=== PATIENT | male | born 1960 | race Hispanic/Latino ===

== ENCOUNTER 2024-05-01 06:45 | Day surgery (SDC) | payer MEDICARE ==
[~2024-05-01] VITALS: Ht 160 cm; Wt 105.0 kg
[2024-05-01] VITALS (7 sets, daily range): BP systolic 96–144; BP diastolic 53–76
[~2024-05-01 06:45] MED LIST: FISH OIL 1,0001 EAC8 PO; FLOMAX0.4 MG PO; LACTATED RINGER'S 1,000 ML IV SCH; MULTI VITAMIN1 EACH PO; Ropivacaine HCl 20 MG/10 ML AMP ONE; TRAMADOL HCL100 M2 PO; TRANEXAMIC ACID 2,000 MG in SODIUM CHLORIDE 0.9% 100 ML IV ONE; VITAMIN B12500 MCG PO
[2024-05-01] MEDS ORDERED: PANTOPRAZOLE SODIUM 40 MG TABEC PO SCH (07:00)
[2024-05-01] MEDS ORDERED: ROPIVACAINE IN 0.9% SOD CHL/PF 545 ML ELS.PMP.HR IRRIGATION SCH (07:00)
[2024-05-01] MEDS ORDERED: CEFAZOLIN SODIUM 2 GM/20 ML SYR IV SCH ×2 (07:00→15:00)
[2024-05-01] MEDS ORDERED: INTRA-ARTICULAR ANALGESIC INJECTION XX SCH (07:00)
[2024-05-01] MEDS ORDERED: IBLOOD GLUCOSE TEST STRIP 1 EA TEST VI PRN ×2 (07:00→11:30)
[2024-05-01] MEDS ORDERED: ondansetron HCL 4 MG TAB PO SCH (07:00)
[2024-05-01] MEDS ORDERED: OXYCODONE HCL 5 MG TAB PO SCH (07:00)
[2024-05-01] MEDS ORDERED: GABAPENTIN 600 MG TAB PO SCH (07:00)
[2024-05-01] MEDS ORDERED: TRANEXAMIC ACID 2,000 MG in SODIUM CHLORIDE 0.9% 100 ML IV SCH (07:00)
[2024-05-01] MEDS ORDERED: LIDOCAINE HCL 1% 5 ML SDV INJ ONE (07:00)
[2024-05-01] MEDS ORDERED: DEXAMETHASONE SOD PHOS 4 MG/ML VIAL ONE ×2 (07:38→11:40)
[2024-05-01] MEDS ORDERED: dexmedeTOMIDine HCl 200 MCG/2 ML VIAL ONE (07:38)
[2024-05-01] MEDS ORDERED: LIDOCAINE HCL 2% 5 ML SDV ONE (07:38)
[2024-05-01] MEDS ORDERED: propofoL 200 MG/20 ML VIAL ONE ×3 (07:38→10:42)
[2024-05-01] MEDS ORDERED: Ropivacaine HCl 0.5% 30 ML VIAL ONE ×2 (07:39→11:40)
[2024-05-01] MEDS ORDERED: SODIUM CHLORIDE 0.9% 40 ML IV ONE (07:39)
[2024-05-01] MEDS ORDERED: TRANEXAMIC ACID 1,000 MG/10 ML AMP ONE ×2 (07:45→10:34)
[2024-05-01] MEDS ORDERED: LACTATED RINGER'S 0 ML IV ONE (07:59)
[2024-05-01] MEDS ORDERED: OXYCODONE HCL 5 MG TAB PO PRN (09:00)
[2024-05-01] MEDS ORDERED: KETOROLAC TROMETHAMINE 30 MG/ML VIAL IV PRN (09:00)
[2024-05-01] MEDS ORDERED: LACTATED RINGER'S 1,000 ML IV ONE (10:38)
[2024-05-01] MEDS ORDERED: KETOROLAC TROMETHAMINE 30 MG/ML VIAL ONE (10:54)
[2024-05-01] MEDS ORDERED: GABAPENTIN300 MG PO (11:01)
[2024-05-01] MEDS ORDERED: SENNA LAX8.6 MG PO (11:01)
[2024-05-01] MEDS ORDERED: DICLOFENAC SODI75 MG PO (11:01)
[2024-05-01] MEDS ORDERED: OXYCODONE HCL5 MG PO (11:01)
[2024-05-01] MEDS ORDERED: NALOXONE HCL 0.4 MG SYR IV PRN (11:30)
[2024-05-01] MEDS ORDERED: fentaNYL citrate 50 MCG/ML SDV IV PRN (11:30)
[2024-05-01] MEDS ORDERED: ondansetron HCL 4 MG/2 ML VIAL IV PRN (11:30)
[2024-05-01] MEDS ORDERED: SODIUM CHLORIDE 0.9% 20 ML IV ONE (11:40)
[2024-05-01] MEDS ORDERED: ACETAMINOPHEN 1,000 MG/100 ML VIAL ONE (11:41)
[2024-05-01] MEDS ORDERED: ACETAMINOPHEN 1,000 MG/100 ML VIAL IV ONE (12:00)
[2024-05-01] MEDS ORDERED: TRANEXAMIC ACID IN NACL,ISO-OS 1,000 MG/100 ML PIGGYBACK IV ONE (12:00)
--- NOTE | 2024-05-01 12:15 | NUR ---
PT ARRIVED BACK TO FROM PACU AT APPROX 1215. REPORT RECEIVED FROM DIESEL DRAGLINE OPERATOR. IV SITE ASSESSED. VS TAKEN. SURGICAL SITE VISUALIZED WITH DIESEL DRAGLINE OPERATOR. NO SHADOWING NOTED. CRYO CUFF PLACED. ON-Q-PUMP SET AT 4. PT REPORTS PAIN 03/01. SPINAL RESOLVED. PT DENIES N/V. WATER, APPLESAUCE, JELLO, AND OMAR CRACKER PROVIDED. BILAT RAILS IN PLACE AND BED IN LOW POSITION WITH WHEELS LOCKED FOR FALL PREVENTION. CALL LIGHT WITHIN PT REACH. PTS SON AND SIFE REMAIN AT BEDSIDE. IV FLUIDS REPLACED WITH NEW BAG OF LR.
--- NOTE | 2024-05-01 12:50 | NUR ---
PT CALLED TO VOID. PT PROVIDED WITH URINAL AND WAS ABLE TO VOID 350ML OF CLR, YELLOW URINE. LUNCH ORDER PLACED FOR PT.
--- NOTE | 2024-05-01 13:10 | NUR ---
PT ARRIVED BACK TO FROM PACU AT APPROX 1215. REPORT RECEIVED FROM POLYMERIZATION SUPERVISOR. IV SITE ASSESSED. VS TAKEN. SURGICAL DRSG VISULAIZED WITH POLYMERIZATION SUPERVISOR. NO SHADOWING PRESENT. CRYO CUFF PLACED. ON-Q PUMP SET AT 4. PT REPORTS PAIN 4/10. WATER, APPLESAUCE, JELLO, AND OMAR CRACKERS GIVEN AT PT REQUEST. PT DENIES NAUSEA WHEN ASKED. SPINAL RESOLVED. BILAT BED RAILS IN PLACE. BED IN LOW POSITION, CALL LIGHT WITHIN REACH. PT SON AND REMAIN AT BEDSIDE. LR BAG REPLACED WITH NEW BAG.
--- NOTE | 2024-05-01 13:15 | NUR ---
INTO PTS ROOM FOR ROUTINE REASSESSMENT. PT REPORTS PAIN 2/10 AND CONT TO DENY N/V WHEN ASKED. PT ATE ALL OF HIS LUNCH AND HIS SON BROUGHT HIM A CUP OF COFFEE FROM [employer] IN THE BOX. HAS REMAINED WITH PT AT BEDSIDE. NO ACUTE CHANGES IN DRSG FROM PREVIOUS ASSESSMENT. IV SITE ASSESSED, PATENT. CALL LIGHT WITHIN PT REACH. ON-Q PUMP REMAINS AT 4. CRYO CUFF IN PLACE. BILAT RAILS IN PLACE FOR SAFETY.
[2024-05-01] MEDS ORDERED: TRANEXAMIC ACID 2,000 MG in SODIUM CHLORIDE 0.9% 100 ML IV ONE (13:30)
--- NOTE | 2024-05-01 13:35 | NUR ---
PT OFF DS FLOOR WITH PT AND HIS SON FOR INTERPRETATION AT PT REQUEST.
--- NOTE | 2024-05-01 14:15 | NUR ---
INTO PTS ROOM FOR ROUTINE ASSESSMENT. PT CONT TO DENY NAUSEA AND REPORTS PAIN /10. CRYO CUFF IN PLACE. ON-Q PUMP REMAINS SET AT 4. NO ACUTE CHANGES IN DRSGS FROM PREVIOUS ASSESSMENT. FAMILY REMAINS IN ROOM. TXA INFUSION COMPLETED. PT INTO SEE PT. CALL LIGHT WITHIN PT REACH.
--- NOTE | 2024-05-01 14:25 | OR ---
[facility] [address] [place] [address] Signed DATE OF OPERATION: 05/01/2024 SURGEON: Quyen Phoenix MD PREOPERATIVE DIAGNOSIS: Severe degenerative joint disease, left knee. POSTOPERATIVE DIAGNOSIS: Severe degenerative joint disease, left knee. PROCEDURE PERFORMED: Left total knee arthroplasty with Jay Jay. SEAL MIXING OPERATOR: Munira Knowles PA-C. ANESTHESIA: Spinal. BLOOD LOSS: 185 mL. TOURNIQUET TIME: Zero. IMPLANTS: Viola Triathlon size 6, 10 mm polyethylene and 35 mm patella. BRIEF HISTORY: Christopher is a 63-year-old gentleman with progressive worsening of osteoarthritis and varus deformity. Risks, benefits, and alternatives of surgery were discussed with him and he elected to proceed. DESCRIPTION OF PROCEDURE: Once consent was obtained, he was taken to the operating room. After adequate anesthesia, he was placed on the operating room table with a hip bump. The left leg was prepped and draped in a standard sterile fashion. The leg was approached through a standard anterior midline incision and a midvastus arthrotomy was performed. The infrapatellar fat pad was excised and MCL was elevated as a sleeve around the posteromedial corner. The anterior horns of the menisci were transected as was the ACL. Electronically Signed By: QUYEN PHOENIX MD 05/01/24 1425 PATIENT NAME: CHRISTOPHER SHEETS OPERATIVE REPORT DATE OF : 56 REPORT #: [id number] PHYSICIAN: QUYEN PHOENIX MD PCP: NO PRIMARY CARE PHYSICIAN REPORT IS CONFIDENTIAL AND NOT TO BE RELEASED WITHOUT AUTHORIZATION [facility] [address] [place], [place] [address] Signed The computer arrays were then placed in the medial femoral condyle and proximal tibia. The leg was registered with the computer followed by the fine anatomic points of the knee. The four poses were then taken and the varus laxity was assessed. Slight changes were made to the position of the implant. The robot was then brought in. The four straight cuts were made with care taken to protect the patellar tendon as were the two angle cuts. Bony remnants removed along with any remaining osteophytes. The posterior osteophytes off the femur were quite large and removed along with several loose bodies. The trials were then positioned. The knee was taken through range of motion from 0 to about 110 degrees with good stability. The patella was cut sized and drilled for a 35 mm patella. The patella was noted to track well. The distal femoral drill holes were completed and the proximal tibia was finished using the keel punch followed by the drill holes. The bone was then cleansed and the implants were selected. The tibia was impacted until it was well seated and flushed. The polyethylene was snapped into position and the femur was impacted. The knee was extended and loaded. The patella was clamped into position once again until it was seated and flushed. The final patellar tracking was noted to be good. The knee was then irrigated with one bottle of Surgiphor followed by normal saline. Periarticular soft tissues were injected with 100 mL of ropivacaine and Toradol mixture. The On-Q pain pump was percutaneously placed into the adductor canal from the suprapatellar pouch. The arthrotomy was then closed using combination of #2 Fiberwire and #2 Stratafix, subcutaneous tissue with 0 Stratafix and the skin with 3-0 Stratafix. The wound was sealed with LiquiBand and Steri-Strips and dressed with an Acticoat-7 dressing, ABDs and Pk wrap. He tolerated the procedure well. All sponge, needle, and instrument counts were correct. Quyen Phoenix MD BA/MODL /[id number] Copies: ~ Electronically Signed By: QUYEN PHOENIX MD 05/01/24 1425 PATIENT NAME: RAFI KANGCHRISTOPHER OPERATIVE REPORT DATE OF : 56 REPORT #: [id number] PHYSICIAN: QUYEN PHOENIX MD PCP: NO PRIMARY CARE PHYSICIAN REPORT IS CONFIDENTIAL AND NOT TO BE RELEASED WITHOUT AUTHORIZATION
[2024-05-01] MEDS ORDERED: GABAPENTIN 300 MG CAP PO SCH (15:00)
[2024-05-01] MEDS ORDERED: ACETAMINOPHEN 500 MG TAB PO SCH (15:00)
--- NOTE | 2024-05-01 15:32 | NUR ---
1510-PT RETURNED TO WITH PT. THERAPY REPORTS PT HAS PASSED PHYSICAL THERAPY. MEDS GIVEN PER EMAR. ROUTINE REASSESSMENT COMPLETED. VS TAKEN. PT REPORTS PAIN 12/01. IV SITE ASSESSED. PT DENIES N/V WHEN ASKED. PTS AND SON REMAIN AT BEDSIDE. ON-Q-PUMP REMAINS SET AT 4. CRYO CUFF IN PLACE TO BACK OF L KNEE. PT INSTRUCTED ON USE OF IS. CALL LIGHT WITHIN REACH.
--- NOTE | 2024-05-01 15:51 | NUR ---
DR GONZALEZ CALLED TO NOTIFY OF PT PASSING PHYSICAL THERAPY AND MEETING ALL CRITERIA FOR DISCHARGE. VERBAL ORDER RECEIVED TO GIVE LAST DOSE OF ANCEF AND DISCHARGE HOME. ORDER ENTERED FOR DC.
--- NOTE | 2024-05-01 16:15 | NUR ---
INTO PTS ROOM FOR ROUTINE REASESSMENT. VSS. PT REPORTS PAIN 0/10. PT DENIES N/V WHEN ASKED. ON-Q-PUMP REMAINS AT 4. NO ACUTE CHANGES IN DRESSING FROM PREVIOUS ASSESSMENT. FAMILY REMAINS AT PT BEDSIDE. CALL LIGHT WITHIN REACH. IV SITE ASSESSED. PT DENIES ANY FURTHER NEEDS OR QUESTIONS.
--- NOTE | 2024-05-01 16:40 | NUR ---
INTO PTS ROOM FOR DISCHARGE TEACHING. PTS SON AND PRESENT. PTS SON IS TRANSLATTING AT PTS REQUEST. PT GIVEN DR. GONZALEZ AFTER HOURS NUMBER WELL BOTH HIS DRSG CHANGE APPOINT AND POST OP APPT. PT AND HIS FAMILY VVERBALIZE UNDERSTANDING. ANCEF GIVEN VIA IV AND FLUSHED WITH 10 ML NS. IV REMOVED FROM R HAND AND PRESSURE DRSG APPLIED USING GAUZE AND COBAN. PT LEFT WITH CALL LIGHT AND PERSONAL BELONGINGS WITHIN REACH AND FAMILY AT [facility] TO ASSIST PT WITH DRESSING.
--- NOTE | 2024-05-01 17:00 | NUR ---
PT TRASNFERRED OFF UNIT VIA WC TO PASSENGER SIDE OF SONS CAR. PT LEFT WITH ALL PERSONAL BELONGINGS.
--- NOTE | 2024-05-01 17:30 | NUR ---
05/01/24 1730 SantanaDashaHayley Mona 1109- PT PRESENTS TO PACU, SEMI SCHREIBER POSITION. REACTIVE TO STIMULUS. LR INFUSING TO RH IV. ABD SOFT, NON DISTENDED. O2 AT 6L PER MASK. ALL MONITORS IN PLACE. DRESSING TO LEFT KNEE, HEELS ELEVATED OFF BED. XRAY CALLED FOR POST OP. 1111- PT PULLING AT MASK, MOVED TO ROOM AIR AT THIS TIME. TOLERATING WELL. 1116- PT HAS LIMITED MOTION TO BLE. REPORTS PAIN TO LEFT KNEE 4/10 AT THIS TIME. ICE PACKS IN PLACE WHILE AWAITING CRYO CUFF. WILL OBTAIN MEDICATION ORDERS. 1125- PT REPORTS PAIN 8/10 AT THIS TIME TO TOP OF KNEE AND LATERAL SIDE. MEDICATED WITH FENTANYL. 1130- PT REPORTS NO CHANGE IN PAIN, MEDICATED WT FENTANYL 2ND DOSE. CONTACTED MUNDO BENEDICT FOR POSSIBLE RE BLOCK. 1140- PT CONTINUES TO COMPLAIN OF PAIN. TYLENOL IV STARTED FOR PAIN WHILE AWAITING REBLOCK. 1145- SATS DOWN TO 88% ON ROOM AIR. FOLLOWS COMMANDS TO TAKE A DEEP BREATH BUT SATS REMAIN 86-90%. PLACED ON 3L O2 PER NC AT THIS TIME. 1150- LEFT LEG REBLOCKED BY MUNDO BENEDICT. WILL CONTINUE TO MONITOR. 1158- PT REPORTS PAIN DOWN TO 6/10 AT THIS TIME AND SLOWLY IMPROVING. 1202- PT SATS REMAIN 100% ON 3L PER NC, MOVED TO ROOM AIR AT THIS TIME. REPORTS PAIN DOWN TO 4/10. 1215- PT TAKEN BACK TO DAY SURGERY VIA STRETCHER. CRYO CUFF PLACED ON LEFT KNEE ON ARRIVAL TO ROOM. LR HANGING TO RH IV. DRESSING IN PLACE CDI, ASSESSED WITH ANKITA HERRERA. REPORT TO ANKITA HERRERA AT BEDSIDE, CARE OF PT TURNED OVER AT THIS TIME.
[2024-05-01] MEDS ORDERED: SENNOSIDES 1 TAB PO SCH (21:00)
[2024-05-02] MEDS ORDERED: TRANEXAMIC ACID 2,000 MG in SODIUM CHLORIDE 0.9% 100 ML IV SCH (01:30)
[2024-05-06] MEDS ORDERED: DICLOFENAC SOD 75 MG TABEC PO SCH (08:00)
== END 2024-05-01 17:00 | disposition home or self-care (01) ==
LOC: DS 06:45
PROVIDERS: ATTEND Specialist
PROC: 0SRD0JZ Replacement of Left Knee Joint with Synthetic Substitute, Open Approach (ICD-10-PCS; principal; 2024-05-01 09:30)
DX: M17.12 Unilateral primary osteoarthritis, left knee (principal)
CPT/HCPCS: 73560; A9270; J0131; J0690; J1100; J1885; J2001; J2704; J2795; J3010; J7121; J7999